=== PATIENT | male | born 1950 | race Hispanic/Latino ===

== ENCOUNTER → 2016-08-15 | Outpatient (CLI) | payer MEDICARE | LOC: GMA 14:47 | PROVIDERS: ATTEND Nurse Practitioner Family | DX: R10.84 Generalized abdominal pain (principal) ==

== ENCOUNTER → 2016-08-17 | Outpatient (CLI) | payer MEDICARE ==
--- NOTE | 2016-08-18 12:49 | US ---
EXAM DESCRIPTION: US ABDOMEN CLINICAL HISTORY: GENERALIZED ABD PN COMPARISON: None Available. TECHNIQUE: Complete abdominal ultrasound was performed utilizing grayscale imaging of the abdomen was performed. Static images were saved to the patient's medical record. FINDINGS: The liver is normal in appearance. There is no focal hepatic mass. The gallbladder is well seen and unremarkable. There are no gallstones. There is no gallbladder wall thickening. The common bile duct is normal in caliber measuring 2.4 mm. The incompletely imaged (due to overlying bowel gas and soft tissues) pancreas and the spleen are unremarkable. The kidneys are normal in size, shape, and echotexture. The IVC and abdominal aorta are unremarkable except for mild atherosclerotic disease. Negative for aneurysm. IMPRESSION: Today's complete abdominal ultrasound demonstrates only atherosclerotic irregularity of the non aneurysmal abdominal aorta. No findings to account for patient's abdominal pain. Electronically signed by: Mat Gray MD 08/18/2016 12:47
== END ==
LOC: US 09:19
PROVIDERS: ATTEND Nurse Practitioner Family
DX: R10.84 Generalized abdominal pain (principal); I70.0 Atherosclerosis of aorta

== ENCOUNTER → 2019-02-10 | Outpatient (CLI) | payer MEDICARE ==
--- NOTE | 2019-02-10 13:37 | CT ---
EXAM DESCRIPTION: Soft Tissue Neck w/Contrast: Computed Tomography CLINICAL HISTORY: 68 years Male, LOC ENLARGED LYMPH NODES. Long-term smoker. COMPARISON: Ultrasound of the neck soft tissues on the same visit. TECHNIQUE: Spiral, axial 2.5 x 2.5 mm scans through the neck soft tissues after infusion of IV contrast. Sagittal and coronal 2.0 millimeter reconstructions. No adverse reactions. Total Exam DLP: 273.86 mGy-cm. This exam was performed according to our departmental CT dose-optimization program which includes automated exposure control, adjustment of the mA and/or kV according to patient size and/or use of iterative reconstruction technique; to reduce radiation dose to as low as reasonably achievable (ALARA). FINDINGS: An inhomogeneously enhancing mass is posterior to the hyoid bone effacing the anterior hypopharynx more left than right, in the left epiglottis and aryepiglottic fold more than right extending inferiorly and circumferentially through the glottis bilaterally. Also enlarging the bilateral false cords, right more than left, terminating at the level of the true cords, which appear symmetric and cricoid cartilage. The anterior aspect of the superior mass measures 3.1 x 1.7 cm in the transverse plane at the level of the hyoid bone. At the false cord level just above the thyroid cartilage, there is more mass affect and abnormal enhancement on the right lateral and posterior aspect of the airway. No destruction in the hyoid bone or thyroid cartilage Two enlarged partially enhancing necrotic lymph nodes in the right carotid space measuring 1.6 x 1.2 cm and 2.2 x 1.0 cm. Partially enhancing necrotic lymph node or mass left side and lateral to the jugular vein medial to the left SCM muscle with mass effect on the muscle at the level of the upper thyroid cartilage and upper glottis. Measuring 2.8 x 1.2 x 2.4 cm, with mass effect on the left IJ vein.. Irregularly enhancing carotid space node between the left internal jugular in the superior mastoid biliary of the left SCM muscle, measuring 1.3 x 1.1 x 0.6 cm. Bilateral parotid glands, and nasopharynx, oropharynx, and tongue base appear symmetric. Included paranasal sinuses and mastoid air cells are unremarkable. Heterogeneous enhancement of the thyroid gland. Small dilated airspaces in the included lungs with posterior apical scarring and bilateral apical pleural thickening. 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 IMPRESSION: 1. Invasive abnormally enhancing tissue extending from the anterior hypo-pharyngeal airway, posterior to the hyoid bone and extending medially along the right lateral aspect and posteriorly through the false cords terminating at the true cords above the cricoid cartilage. Enlarged bilateral necrotic lymph nodes. 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 Less likely to represent a metastasis or inflammatory lesion. ENT consult is recommended. 2. Spondylosis cervical spine. Emphysematous changes in the bilateral upper lung baca. Electronically signed by: Ritesh Yen MD 02/10/2019 1:35 PM CDT
--- NOTE | 2019-02-10 13:54 | US ---
EXAM DESCRIPTION: Soft Tissue,Head/Neck: ULTRASOUND. CLINICAL HISTORY: 68 years Male LOCALIZED ENLARGED LYMPH NODES. Hypopharyngeal mass. COMPARISON: CT scanning of the neck soft tissues with IV contrast on this visit. TECHNIQUE: Transcutaneous scanning: Gonsales-scale and Doppler modes. FINDINGS: On the right side of the neck soft tissue masses are palpable. One mass in the right carotid space has circumscribed margins and central echogenicity and vascularity measuring 2.2 x 1.0 x 0.6 cm. A second mass appears more complex in the right carotid space and minimally vascular, measuring 2.1 x 1.4 x 1.0 cm. On the right side of the neck, a hypoechoic mass is partially vascular and is abutting the airway, measuring 4.0 x 2.9 x 3.4 cm. On the left side of the neck, a hypoechoic mass is abutting the left internal jugular vein with mass effect on the medial left SCM muscle and minimal peripheral vascularity. Dimensions are 2.7 x 1.9 x 1.2 cm. IMPRESSION: Bilateral enlarged lymph nodes,, with one of the enlarged lymph nodes on the right appearing complex and possibly necrotic. Possible 4 cm partially vascular mass abutting the right airway. These findings are consistent with findings of hypopharyngeal mass and enlarged lymph nodes on the CT scan today. Electronically signed by: Ritesh Yen MD 02/10/2019 1:52 PM CDT
== END ==
LOC: US 11:06
PROVIDERS: ATTEND Nurse Practitioner Family
DX: R59.0 Localized enlarged lymph nodes (principal); M47.892 Other spondylosis, cervical region; J43.9 Emphysema, unspecified

== ENCOUNTER → 2020-04-05 | Outpatient (CLI) | payer MEDICARE | LOC: HHH 15:20 | PROVIDERS: ATTEND Internal Medicine Medical Oncology | DX: R39.15 Urgency of urination (principal) ==

== ENCOUNTER → 2020-04-07 | Outpatient (CLI) | payer MEDICARE | LOC: HHH 09:20 | PROVIDERS: ATTEND Nurse Practitioner Family | DX: R33.8 Other retention of urine (principal); R39.15 Urgency of urination ==

== ENCOUNTER → 2020-04-20 | Outpatient (CLI) | payer MEDICARE | LOC: YCFC.O 12:11 | PROVIDERS: ATTEND Nurse Practitioner Family | DX: Z03.818 Encounter for observation for suspected exposure to other biological agents ruled out (principal); Z11.59 Encounter for screening for other viral diseases ==

== ENCOUNTER → 2020-04-28 | Outpatient (CLI) | payer MEDICARE | LOC: HHH 10:31 | PROVIDERS: ATTEND Internal Medicine Medical Oncology | DX: C32.1 Malignant neoplasm of supraglottis (principal); D50.8 Other iron deficiency anemias ==

== ENCOUNTER → 2020-05-05 | Outpatient (CLI) | payer MEDICARE | LOC: HHH 11:14 | PROVIDERS: ATTEND Internal Medicine Medical Oncology | DX: C32.1 Malignant neoplasm of supraglottis (principal); D50.8 Other iron deficiency anemias ==

== ENCOUNTER 2020-06-22 10:08 | Inpatient (IN) | payer MEDICARE ==
--- NOTE | 2020-06-22 10:44 | ED.PDOC ---
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 Pt. is frail and ill appearing with feeding tube and history primarily collected from at bedside. Denies fever cough sob recent travel or contact with covid19 denies fever chills nausea vomiting diarrhea chest pain sob diaphoresis no change in diet rest bowel or bladder. Denies drinking or smoking has PMD in [facility] no other c/o today. PPE worn-N95 surgical mask with attached face shield over N95 gloves and face shield over that Allergies/Adverse Reactions: Allergies NO KNOWN ALLERGY Allergy (Verified 06/22/20 10:51) Home Medications: Ambulatory Orders Tylenol/Codeine Elixir 120/12 5 ml PO PRN 06/22/20 Review of Systems - Review of Systems Constitutional: States: see HPI EENTM: States: see HPI Respiratory: States: see HPI Cardiology: States: see HPI Gastrointestinal/Abdominal: States: see HPI Genitourinary: States: see HPI Musculoskeletal: States: see HPI Skin: States: see HPI Neurological: States: see HPI Endocrine: States: see HPI All other Systems: Reviewed and Negative Past Medical History (General) - Patient Medical History Hx MRSA: Yes - Leg Wound, 2016 MRSA Source:: Wound Family Medical History - Family History Mother Family History: Unknown Physical Exam - Physical Exam General Appearance: Frail, Ill Appearing Eye Exam: bilateral normal Ears, Nose, Throat: normal ENT inspection Neck: non-tender Respiratory: no respiratory distress Cardiovascular/Chest: regular rate, rhythm Gastrointestinal/Abdominal: non tender, soft, other - feeding tube in place PEG Rectal Exam: deferred Back Exam: normal inspection Extremity: normal range of motion, non-tender Neurologic: no motor/sensory deficits Skin Exam: pallor Progress - Progress Progress: 06/22/20 10:45 A/P-Hypoxia, Fatigue-iv cbc cmp trop ekg cxr cta chest respiratory panel reassess 06/22/20 11:10 EKG-non specific TW changes No STEMI NSR 98bpm 06/22/20 12:23 Laboratory Tests 06/22/20 06/22/20 06/22/20 10:29 10:29 10:29 WBC 7.1 RBC 2.62 L Hgb 7.7 L* Hct 23.2 L MCV 88.2 MCH 29.5 MCHC 33.4 RDW 21.5 H Plt Count 345 MPV 7.9 Absolute Neuts (auto) 6.10 Absolute Lymphs (auto) 0.50 L Absolute Monos (auto) 0.50 Absolute Eos (auto) 0.00 Absolute Basos (auto) 0.00 Neutrophils % 86.1 H Lymphocytes % 6.5 L Monocytes % 7.0 Eosinophils % 0.2 L Basophils % 0.2 PT 10.6 INR 1.07 PTT (SP) 31.8 H Sodium 139 Potassium 4.0 Chloride 97 L Carbon Dioxide 28 Anion Gap 18.0 BUN 38 H Creatinine 1.21 BUN/Creatinine Ratio 31.4 H Random Glucose 124 H Serum Osmolality 288.0 Calcium 8.9 Total Bilirubin 0.4 AST 41 ALT 21 Alkaline Phosphatase 48 Troponin I Serum Total Protein 8.6 H Albumin 3.4 Globulin 5.2 H Albumin/Globulin Ratio 0.7 L 06/22/20 10:29 WBC RBC Hgb Hct MCV MCH MCHC RDW Plt Count MPV Absolute Neuts (auto) Absolute Lymphs (auto) Absolute Monos (auto) Absolute Eos (auto) Absolute Basos (auto) Neutrophils % Lymphocytes % Monocytes % Eosinophils % Basophils % PT INR PTT (SP) Sodium Potassium Chloride Carbon Dioxide Anion Gap BUN Creatinine BUN/Creatinine Ratio Random Glucose Serum Osmolality Calcium Total Bilirubin AST ALT Alkaline Phosphatase Troponin I < 0.02 Serum Total Protein Albumin Globulin Albumin/Globulin Ratio 06/22/20 12:32 EXAM DESCRIPTION: Chest,1 View CLINICAL HISTORY: Hypoxia COMPARISON: 22 January 2020 TECHNIQUE: AP portable chest FINDINGS: Bilateral interstitial lung disease is observed more pronounced on the left. The heart is within range of normal. No pleural fluid is seen. A gastrostomy tube is seen in the left upper quadrant. IMPRESSION: New interstitial infiltrates are observed more pronounced on the left and more pronounced peripherally. This raises the possibility of a viral pneumonia Electronically signed by: Yovani Holm MD 06/22/2020 12:09 PM [employer] EXAM DESCRIPTION: CTA Chest CLINICAL HISTORY: 70 years Male, r/o PE h/o vocal cord cancer COMPARISON: Chest x-ray dated the same date TECHNIQUE: Transaxial images were obtained during administration of intravenous contrast media. Sagittal coronal and lobe oblique reconstruction was performed. No 3-D reconstruction was performed.This exam was performed according to our departmental dose-optimization program, which includes automated exposure control, adjustment of the mA and/or kV according to patient size and/or use of iterative reconstruction technique. FINDINGS: The thyroid is normal in appearance. No pathologic axillary adenopathy is observed. Calcific atherosclerotic changes observed in the thoracic aorta without evidence of aneurysmal dilatation. No hilar or mediastinal adenopathy is seen. A moderate size left pleural effusion is noted. No adrenal masses are detected. Interstitial infiltrates are observed bilaterally. No evidence of a pulmonary embolus is detected. There are more pronounced on the left. No bone abnormality is seen. IMPRESSION: 1. No evidence of a pulmonary emesis seen. 2. A moderate size left pleural effusion is seen. 3. Bilateral interstitial infiltrates are observed pneumonia should be considered. The possibility of interstitial spread of neoplasm could also be entertained and was felt less likely. Electronically signed by: Yovani Holm MD 06/22/2020 12:14 PM [employer] Add Pneumonia and Symptomatic Anemia to diagnosis 06/22/20 13:[address] Tinajero Oncologist, is okay with admission to our hospitalist pt is on single agent chemotherapy spoke to Shilo Arnold who accepts admission Departure - Departure Clinical Impression: Symptomatic anemia, Hypoxia Pneumonia Qualifiers: Pneumonia type: due to unspecified organism Laterality: unspecified laterality Lung location: unspecified part of lung Qualified Code(s): J18.9 - Pneumonia, unspecified organism Failure to thrive Qualifiers: Failure to thrive age range: in adult Qualified Code(s): R62.7 - Adult failure to thrive Disposition: Admit Patient Condition: Fair Departure Forms: ED Discharge - Pt. Copy, Patient Portal Self Enrollment Referrals: Alicia Ferguson NP [Primary Care Provider] - 1-2 Days Home Medications: Ambulatory Orders Tylenol/Codeine Elixir 120/12 5 ml PO PRN 06/22/20 Decision To Admit - Decistion To Admit Decision to Admit Reason: Admit from ER Decision to Admit Date: 06/22/20 Decision to Admit Time: 13:58
--- NOTE | 2020-06-22 12:10 | RAD ---
EXAM DESCRIPTION: Chest,1 View CLINICAL HISTORY: Hypoxia COMPARISON: 22 January 2020 TECHNIQUE: AP portable chest FINDINGS: Bilateral interstitial lung disease is observed more pronounced on the left. The heart is within range of normal. No pleural fluid is seen. A gastrostomy tube is seen in the left upper quadrant. IMPRESSION: New interstitial infiltrates are observed more pronounced on the left and more pronounced peripherally. This raises the possibility of a viral pneumonia Electronically signed by: Yovani Holm MD 06/22/2020 12:09 PM [facility]
--- NOTE | 2020-06-22 12:16 | CT ---
EXAM DESCRIPTION: CTA Chest CLINICAL HISTORY: 70 years Male, r/o PE h/o vocal cord cancer COMPARISON: Chest x-ray dated the same date TECHNIQUE: Transaxial images were obtained during administration of intravenous contrast media. Sagittal coronal and lobe oblique reconstruction was performed. No 3-D reconstruction was performed.This exam was performed according to our departmental dose-optimization program, which includes automated exposure control, adjustment of the mA and/or kV according to patient size and/or use of iterative reconstruction technique. FINDINGS: The thyroid is normal in appearance. No pathologic axillary adenopathy is observed. Calcific atherosclerotic changes observed in the thoracic aorta without evidence of aneurysmal dilatation. No hilar or mediastinal adenopathy is seen. A moderate size left pleural effusion is noted. No adrenal masses are detected. Interstitial infiltrates are observed bilaterally. No evidence of a pulmonary embolus is detected. There are more pronounced on the left. No bone abnormality is seen. IMPRESSION: 1. No evidence of a pulmonary emesis seen. 2. A moderate size left pleural effusion is seen. 3. Bilateral interstitial infiltrates are observed pneumonia should be considered. The possibility of interstitial spread of neoplasm could also be entertained and was felt less likely. Electronically signed by: Yovani Holm MD 06/22/2020 12:14 PM [employer]
[2020-06-22] MEDS ORDERED: cefTRIAXone SODIUM 1 GM in SODIUM CHL 0.9% 50ML MIN-BAG+ 50 ML IVPB ONE (12:34)
[2020-06-22] MEDS ORDERED: AZITHROMYCIN IV 500 MG in SODIUM CHLORIDE 0.9% 250ML 250 ML IVPB ONE (12:34)
[2020-06-22] MEDS ORDERED: DEXAMETHASONE INJ 10 MG/ML VIAL IV ONE (12:34)
--- NOTE | 2020-06-22 17:29 | HP ---
SUPERVISING PHYSICIAN: Rosas Jones MD CHIEF COMPLAINT: Hypoxia. HISTORY OF PRESENT ILLNESS: Mr. Mcgee is a 70-year-old male that has a history of vocal cord cancer. He was brought to the Emergency Room by his . He was sent at the request of the home health nurse as he was showing saturations on room air of 80%. He does have a feeding tube in place and is currently getting chemotherapy. The patient is a very poor historian, therefore, records were obtained from the clinic which are very limited in information. The rest was obtained from Emergency Room records. In the ER, his initial vital signs showed he was mildly tachycardic at 103, saturations 90% on 2 liters nasal cannula with blood pressure 110/66. His laboratory studies showed he was anemic with normocytic/normochromic presentation with hemoglobin 7.7, hematocrit 23.2. Platelet count was normal at 345. He does have a left shift. Coagulation studies showed PT 2.6, PTT 31.8. Chemistry showed creatinine 1.21, troponin less than 0.02. CT of the chest was completed to rule out pulmonary embolism based on his history of cancer, increased shortness of breath and tachycardia and per radiologic interpretation, there is no evidence of pulmonary embolism seen. There was note a moderate sized left pleural effusion and bilateral interstitial infiltrate concerning for pneumonia. Given his history of cancer and current chemotherapy, Dr. Mares was contacted by the ER physician who agreed that the patient was stable enough to be admitted for treatment of pneumonia here at [facility]. He had a nasal swab done that was negative for all bacterial and viral targets including COVID and influenza. He was started on antibiotics with Rocephin and azithromycin. He was admitted for treatment of underlying pneumonia in stable condition at time of admission. PAST MEDICAL HISTORY: 1. Vocal cord cancer under currently treatment by Dr. Mares. Otherwise, past medical history is unremarkable. PAST SURGICAL HISTORY: 1. Metal plate in his left arm which was removed in the 80s. 2. PEG tube placement due to complications from vocal cord cancer. No other surgeries listed. HOME MEDICATIONS: We are awaiting updated list of medications. ALLERGIES: NO KNOWN DRUG ALLERGIES. FAMILY HISTORY: Father at age 75 due to emphysema. Mother at age 81 due to heart attack. He had two brothers with unknown medical history, but there is mention of positive history of hypertension, myocardial infarction. SOCIAL HISTORY: The patient is retired [employer]. He is and lives in [place]. He does have a past history of smoking 1-1/2 packs per day, but quit after diagnosed with cancer in the last 2 or 3 years. He used to drink alcohol on a regular basis, but denies any recent alcohol usage. He does not use any illicit drugs. REVIEW OF SYSTEMS: CONSTITUTIONAL: Denies any fevers, chills. Positive for general malaise and weakness. HEENT: As noted in history of present illness, positive for vocal cord cancer. He can vocalize, but very limited. No reported sore throats, earaches, nasal congestion. RESPIRATORY: Denies coughing, but does have shortness of breath as noted in history of present illness. CARDIOVASCULAR: Denies chest pain, palpitations or syncopal episodes. GASTROINTESTINAL: Denies nausea, vomiting or abdominal pain. He does have PEG tube in place. GENITOURINARY: Denies dysuria, hematuria, polyuria. MUSCULOSKELETAL: Denies any joint swelling, arthralgias, just generalized weakness. SKIN: Denies lesions, rashes, moles or unexplained changes. NEUROLOGIC: Denies seizures, ataxia. He does have generalized weakness, but no motor focal deficits. HEMATOLOGIC: Denies unexplained bleeding, bruising or transfusion reactions. PHYSICAL EXAMINATION: VITAL SIGNS: Initially temperature 98, pulse 103, blood pressure 110/66, respirations 20, saturation 90% on 2 liters nasal cannula. After breathing treatment, improvement to 96% on 3 liters at rest. GENERAL: The patient is very frail in appearance, thin and weak. He is alert. HEENT: Tympanic membranes clear bilaterally. Oropharynx is pink. Mucous membranes are notably dry. NECK: Supple, nontender with full range of motion. RESPIRATORY: Lung sounds are diminished, but no obvious rhonchi, wheezes or rales. CARDIOVASCULAR: Regular rate and rhythm without any appreciable murmurs, gallops, or rubs. ABDOMEN: Soft, nontender. Positive bowel sounds with PEG tube in place in the left upper quadrant. RECTAL: Deferred. BACK: No CVA or vertebral tenderness. EXTREMITIES: There is no cyanosis, clubbing or edema. NEUROLOGIC: Cranial nerves II-XII are grossly intact. The patient is alert and oriented times three. SKIN: Very pale, but dry. LABORATORY: Hemoglobin 7.7, hematocrit 23.2, platelet count 345,000. White count normal at 7,100, but he does have a left shift. Coagulation studies showed normal PT, PTT slightly elevated 31.8. Chemistries showed normal electrolytes. BUN 38, creatinine 1.21. Liver functions were within normal limits. He had three sets of troponins which were all less than 0.02. Urinalysis showed small amount of leukocyte esterase. Microscopic revealed 0 to 1 RBCs, 5 to 10 WBCs with 1 to 3 epithelials and 1+ bacteria. MICROBIOLOGY: Urine culture pending. Respiratory panel was negative for all bacterial and viral targets as tested including COVID and influenza. RADIOLOGY: CT of chest per radiologic interpretation showed no evidence of pulmonary embolism. There is moderate sized pleural effusion seen on the left with bilateral interstitial infiltrates with pneumonia to be considered. ASSESSMENT: 1. Community acquired pneumonia. 2. Active treatment for vocal cord cancer with chemotherapy. 3. Anemia secondary to underlying chronic illness and chemotherapy, but hemodynamically stable. 4. Urinary tract infection with cultures pending. 5. Mild dehydration, likely due to poor oral intake with PEG tube in place. PLAN: Mr. Mcgee is going to be admitted to the hospital for treatment of underlying pneumonia, urinary tract infection and dehydration. We will start him on treatment with Rocephin and azithromycin. He will be Lovenox. He will be on tube feedings once his feeding tube regimen is in place from home. We will follow his labs. I will put him on some Protonix and Align. I anticipate his length of stay to be at least 2 to 3 days. Until the patient can transition to outpatient management, we will continue to monitor and treat as needed. #[id number] [facility]
[2020-06-22] MEDS ORDERED: ALBUTEROL SULFATE 2.5 MG/3 ML VIAL NEB PRN (18:19)
[2020-06-22] MEDS ORDERED: SODIUM CHLORIDE 0.9% (FLUSH) 10 ML SYG IV PRN (18:19)
[2020-06-22] MEDS ORDERED: ONDANSETRON INJ 4 MG/2 ML VIAL IV PRN (18:19)
[2020-06-22] MEDS ORDERED: IV SET AND CAP CHANGE INJ INJ SCH (18:30)
[2020-06-22] MEDS: IPRATROPIUM/ALBUTEROL 3 ML VIAL INH SCH (19:44)
[2020-06-22] MEDS: ENOXAPARIN SODIUM 40 MG/0.4 ML SYG SUBCU SCH (20:10)
[2020-06-23] MEDS: PANTOPRAZOLE SODIUM IV 40 MG VIAL IV SCH (06:53)
[2020-06-23] MEDS ORDERED: cefTRIAXone SODIUM 1 GM VIAL ONE (07:06)
[2020-06-23] MEDS ORDERED: SODIUM CHL 0.9% 50ML MIN-BAG+ 50 ML IVPB ONE (07:06)
[2020-06-23] MEDS ORDERED: SODIUM CHLORIDE 0.9% 250ML 250 ML ONE (07:07)
[2020-06-23] MEDS ORDERED: AZITHROMYCIN IV 500 MG VIAL IVPB ONE (07:07)
[2020-06-23] MEDS: cefTRIAXone SODIUM 1 GM in SODIUM CHL 0.9% 50ML MIN-BAG+ 50 ML IVPB SCH (08:00)
[2020-06-23] MEDS: IPRATROPIUM/ALBUTEROL 3 ML VIAL INH SCH ×4 (09:02→20:06)
[2020-06-23] MEDS: AZITHROMYCIN IV 500 MG in SODIUM CHLORIDE 0.9% 250ML 250 ML IVPB SCH (10:48)
[2020-06-23] MEDS ORDERED: IPRATROPIUM/ALBUTEROL 3 ML VIAL NEB ONE (12:37)
[2020-06-23] MEDS ORDERED: methylPREDNISolone SODIUM SUC 40 MG/ML VIAL IV ONE (16:02)
[2020-06-23] MEDS ORDERED: ACETAMINOPHEN 325 MG TAB PO ONE (16:02)
[2020-06-23] MEDS ORDERED: FUROSEMIDE INJ 20 MG/2 ML VIAL IV ONE (16:02)
[2020-06-23] MEDS ORDERED: diphenhydrAMINE HCL 50 MG/ML VIAL IV ONE (16:02)
[2020-06-23] MEDS ORDERED: SODIUM CHLORIDE 0.9% 500ML 500 ML IVS SCH (16:30)
--- NOTE | 2020-06-23 17:57 | PN ---
SUPERVISING PHYSICIAN: Jeff Jones MD DATE: 06/23/20 SUBJECTIVE: The patient has been coughing up a little bright red blood, notes his throat has been sore but he has not had any airway compromise. We are not transfusing him yet but we are watching his hemoglobin and hematocrit and I anticipate we probably have to transfuse later today. He is still quite weak but has not had any chest pain and no nausea or vomiting. He seems to be tolerating his feedings. OBJECTIVE: VITAL SIGNS: Temperature 98.3, pulse 90, blood pressure 107/52, respirations 16, oxygen saturation 94% on 3 liter nasal cannula at rest. CHEST: Sounds just a little diminished bilaterally but otherwise fairly clear. HEART: Regular rate and rhythm. ABDOMEN: Soft, non-tender with PEG tube in place. No rebound tenderness. EXTREMITIES: Without edema. NEUROLOGIC: Alert and oriented x 3. LABORATORY: Hemoglobin 7.3, hematocrit 21.7, platelet count 320,000. Differential does show to be a left shift. Chemistries show normal electrolytes, BUN 34, creatinine 0.93, calcium 8.6. MICROBIOLOGY: Urine culture shows no growth at 24 hours. RADIOLOGY: No additional radiographic studies. ASSESSMENT: 1. Community acquired pneumonia. 2. Active treatment for vocal cord cancer with chemotherapy. 3. Anemia secondary to underlying chronic illness and chemotherapy, but hemodynamically stable. 4. Hemoptysis probably secondary to vocal cord cancer without any airway compromise. 5. Urinary tract infection with cultures pending. 6. Mild dehydration, likely due to poor oral intake with PEG tube in place. PLAN: Will follow the patient's H&H today and if it shows dropping, certainly we will go ahead and transfuse at least one unit. In regard to his hemoptysis, we will watch that closely but I think that is probably due to his underlying vocal cord cancer but he is not showing any respiratory distress at this point. Hopefully, we will be able to transition him to outpatient management in the next 24-48 hours but he does remain weak. Will go ahead and get a physical therapy consult as well as a nutritional consultation. I am not sure if he is actually getting an adequate amount of protein based off his current tube feeding regimen. [id number] MTDD
[2020-06-23] MEDS: ENOXAPARIN SODIUM 40 MG/0.4 ML SYG SUBCU SCH (20:36)
[2020-06-24] MEDS: PANTOPRAZOLE SODIUM IV 40 MG VIAL IV SCH (05:44)
[2020-06-24] MEDS: cefTRIAXone SODIUM 1 GM in SODIUM CHL 0.9% 50ML MIN-BAG+ 50 ML IVPB SCH (08:13)
[2020-06-24] MEDS: IPRATROPIUM/ALBUTEROL 3 ML VIAL INH SCH ×4 (08:30→20:28)
[2020-06-24] MEDS: AZITHROMYCIN IV 500 MG in SODIUM CHLORIDE 0.9% 250ML 250 ML IVPB SCH (12:22)
[2020-06-24] MEDS ORDERED: IPRATROPIUM/ALBUTEROL 3 ML VIAL NEB ONE (17:17)
--- NOTE | 2020-06-24 18:29 | PN ---
SUPERVISING PHYSICIAN: Jeff Jones MD DATE: 06/24/20 SUBJECTIVE: The patient got a unit of blood last night. His H&H did increase significantly and he feels a little better this morning. He did get a nutritional consult and he is no longer having any hemoptysis since late yesterday evening. He has no complaints of abdominal pain. He has actually been able to tolerate some tube feedings better than he was prior to admission. OBJECTIVE: VITAL SIGNS: Temperature 98, pulse 70, blood pressure 115/75, respirations 16, oxygen saturation 94% on 4 liters nasal cannula at rest. CHEST: Sounds just a little diminished bilaterally but otherwise fairly clear. HEART: Regular rate and rhythm. ABDOMEN: Soft, non-tender with PEG tube in place. No rebound tenderness. EXTREMITIES: Without edema. NEUROLOGIC: Alert and oriented x3. LABORATORY: Hemoglobin dropped last night to 68 and hematocrit 20.0. He got a unit of packed red blood cells overnight. This morning, repeat H&H was 10.2 and 30.6. Chemistries show normal electrolytes, creatinine 0.93, calcium 8.6. MICROBIOLOGY: Urine culture shows no growth at 48 hours. ASSESSMENT: 1. Community acquired pneumonia. 2. 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 3. Normocytic/normochromic anemia secondary to chronic illness and #2, receiving a unit of packed red blood cells. 4. Hemoptysis probably secondary to vocal cord cancer without any noted airway compromise, resolving. 5. Possible urinary tract infection with current cultures showing no growth. 6. Mild dehydration, resolved with further feedings and IV fluids. PLAN: We will continue current posterior. I would anticipate if he continues to show improvement in regards to the pneumonia, we will repeat an x-ray in the morning and he will probably be able to discharge home. We will recheck his H&H in the morning as well. At this point, I will hold off on any additional transfusions as he is up 10, which is adequate for him. He noted he feels much better. We did get a physical therapy evaluation and we will continue with physical therapy. At this point, he seems to be doing okay physically and recommendations are that he may need to have some physical therapy at home with home health. Otherwise, if he is doing well in the morning, I anticipate we will be able to discharge home and continue with outpatient management. #[id number] [facility]
[2020-06-24] MEDS: ENOXAPARIN SODIUM 40 MG/0.4 ML SYG SUBCU SCH (21:30)
[2020-06-25] MEDS ORDERED: SODIUM CHLORIDE 0.65% NASAL SPRAY 45 ML BTTL BNAS PRN (01:35)
[2020-06-25] MEDS ORDERED: SODIUM CHLORIDE 0.65% NASAL SPRAY 45 ML BTTL ONE (01:37)
[2020-06-25] MEDS: PANTOPRAZOLE SODIUM IV 40 MG VIAL IV SCH (05:56)
--- NOTE | 2020-06-25 07:38 | RAD ---
EXAM DESCRIPTION: X-ray single view chest. CLINICAL HISTORY: 70 years Male, PNA COMPARISON: 06/23/2020 and 06/22/2020 TECHNIQUE: Single portable x-ray view of the chest performed on 06/25/2020 at 6:47 AM FINDINGS: The lungs are well expanded. There is ongoing mild diffuse hazy opacification throughout the lungs with slightly improved aeration of the left lung base. There is no evidence of a pneumothorax. The cardiac silhouette is normal in size and configuration. The mediastinal contours are normal. No acute osseous abnormality is identified. No focal soft tissue abnormalities are seen. Lines and tubes: There appears to be a percutaneous gastrostomy catheter in the left upper quadrant. There are multiple overlying security monitor leads. IMPRESSION: Ongoing mild diffuse hazy opacification throughout the lungs with slightly improved aeration of the left lung base. Findings may be due to edema, multifocal pneumonia and/or fibrosis. Electronically signed by: Bruna Dee DO 06/25/2020 7:37 AM [facility]
[2020-06-25] MEDS: cefTRIAXone SODIUM 1 GM in SODIUM CHL 0.9% 50ML MIN-BAG+ 50 ML IVPB SCH (08:28)
[2020-06-25] MEDS: IPRATROPIUM/ALBUTEROL 3 ML VIAL INH SCH (09:00)
[2020-06-25 09:40] VITALS: O2SAT 95
[2020-06-25] MEDS: AZITHROMYCIN IV 500 MG in SODIUM CHLORIDE 0.9% 250ML 250 ML IVPB SCH (11:53)
[2020-06-25 13:08] VITALS: BP 97/61; TEMP 98.9
--- NOTE | 2020-06-27 08:38 | DS ---
SUPERVISING PHYSICIAN: Rosas Jones MD ADMISSION DIAGNOSIS: 1. Community acquired pneumonia. 2. Active treatment for vocal cord cancer with chemotherapy. 3. Anemia secondary to underlying chronic illness and chemotherapy, but hemodynamically stable. 4. Urinary tract infection with cultures pending. 5. Mild dehydration, likely due to poor oral intake with PEG tube in place. DISCHARGE DIAGNOSIS: 1. Community acquired pneumonia. 2. 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 3. Normocytic/normochromic anemia secondary to chronic illness and #2, receiving a unit of packed red blood cells. 4. Hemoptysis probably secondary to vocal cord cancer without any noted airway compromise, resolving. 5. Possible urinary tract infection with current cultures showing no growth. 6. Mild dehydration, resolved with further feedings and IV fluids. REASON FOR HOSPITALIZATION: Mr. Mcgee is a 70-year-old male that has a history of vocal cord cancer. He was brought to the Emergency Room by his . He was sent at the request of the home health nurse as he was showing saturations on room air of 80%. He does have a feeding tube in place and is currently getting chemotherapy. The patient is a very poor historian, therefore, records were obtained from the clinic which are very limited in information. The rest was obtained from Emergency Room records. In the ER, his initial vital signs showed he was mildly tachycardic at 103, saturations 90% on 2 liters nasal cannula with blood pressure 110/66. His laboratory studies showed he was anemic with normocytic/normochromic presentation with hemoglobin 7.7, hematocrit 23.2. Platelet count was normal at 345. He does have a left shift. Coagulation studies showed PT 2.6, PTT 31.8. Chemistry showed creatinine 1.21, troponin less than 0.02. CT of the chest was completed to rule out pulmonary embolism based on his history of cancer, increased shortness of breath and tachycardia and per radiologic interpretation, there is no evidence of pulmonary embolism seen. There was note a moderate sized left pleural effusion and bilateral interstitial infiltrate concerning for pneumonia. Given his history of cancer and current chemotherapy, Dr. Mares was contacted by the ER physician who agreed that the patient was stable enough to be admitted for treatment of pneumonia here at [facility]. He had a nasal swab done that was negative for all bacterial and viral targets including COVID and influenza. He was started on antibiotics with Rocephin and azithromycin. He was admitted for treatment of underlying pneumonia in stable condition at time of admission. LABORATORY: Initial hemoglobin 7.7, hematocrit 23.2, white count 7,100 with a left shift. Platelet count normal at 345. His lowest hemoglobin was 6.8 and hematocrit 20.0. He received 1 unit of packed red blood cells and prior to discharge, he was at hemoglobin 9.5, hematocrit 28.0. Coagulation studies showed PTT 31.8 with a normal PT. Chemistries on discharge showed normal electrolytes, normal calcium, normal creatinine at 0.93. He had 3 troponins that were all less than 0.02. Urinalysis showed a small amount of leukocyte esterase with 5 to 10 WBCs, 0 to 1 RBCs, 1 to 3 epithelial and 1+ bacteria. MICROBIOLOGY: Final urine culture results showed no growth. Nasal swab was negative for COVID and all other bacterial and viral agents including influenza. RADIOLOGY: CT of the chest in the ER prior to admission showed no evidence of pulmonary embolism. There was moderate sized left pleural effusion seen and bilateral interstitial infiltrates observed, pneumonia should be considered. Please see that report for details. Final chest x-ray on discharge per radiologic interpretation showed ongoing mild diffuse hazy opacities throughout the lungs with slightly improved aeration in left lung base. HOSPITAL COURSE: Mr. Mcgee was admitted for pneumonia and symptomatic anemia. He was transfused with 1 unit of packed red blood cells. He had no evidence of any acute bleed. He did well with 1 unit. He worked with physical therapy and was doing well. He did show some slight desaturations with ambulation, but was maintaining good O2 saturations on room air. On day of discharge, it was felt he was clinically stable enough to continue with outpatient management. Arrangements were made for oxygen at home. Saturations here were showing 95% at rest on 3 liters nasal cannula. Temperature 98.5, pulse 111, blood pressure 97/61, respirations 22. PLAN: Mr. Mcgee was discharged on 06/25/[address] Mares. He was to call his office on Saturday. He was continued on antibiotics for underlying pneumonia with cefdinir. He had arrangements for oxygen at home. He has home health with [facility]. He was to resume his usual tube feeding diet and increase fluids as possible to prevent dehydration. He was given instructions to return to the Emergency Room for any concerning symptoms. All other medications prior to hospitalization were continued. MEDICATIONS PRESCRIBED AT DISCHARGE: 1. Cefdinir 250 mg per 5 mL, 6 mL to take 2 twice daily for 7 days. 2. Albuterol inhaler. CONDITION ON DISCHARGE: Stable and improved. DISPOSITION: The patient was discharged home. #[id number] [facility]
== END 2020-06-25 13:45 | disposition home health service (06) | DRG 194 ==
LOC: ER 10:08 → MS 17:27 → OBSVTOIN 17:27
PROVIDERS: ADMIT Nurse Practitioner Family; ATTEND Nurse Practitioner Family
PROC: B32T1ZZ Computerized Tomography (CT Scan) of Left Pulmonary Artery using Low Osmolar Contrast (ICD-10-PCS; principal; 2020-06-22)
PROC: B32S1ZZ Computerized Tomography (CT Scan) of Right Pulmonary Artery using Low Osmolar Contrast (ICD-10-PCS; 2020-06-22)
PROC: 30233N1 Transfusion of Nonautologous Red Blood Cells into Peripheral Vein, Percutaneous Approach (ICD-10-PCS; 2020-06-23)
DX: J18.9 Pneumonia, unspecified organism (principal); N39.0 Urinary tract infection, site not specified; R04.2 Hemoptysis; C32.0 Malignant neoplasm of glottis; D63.8 Anemia in other chronic diseases classified elsewhere; E86.0 Dehydration; Z93.1 Gastrostomy status; D64.81 Anemia due to antineoplastic chemotherapy; T45.1X5A Adverse effect of antineoplastic and immunosuppressive drugs, initial encounter; Y92.9 Unspecified place or not applicable; Z87.891 Personal history of nicotine dependence

== ENCOUNTER → 2020-08-13 | Outpatient (CLI) | payer MEDICARE ==
--- NOTE | 2020-08-15 10:31 | RAD ---
EXAM: Chest,2 Views CLINICAL HISTORY: hx of pneumonia COMPARISON STUDY: Chest x-ray from June 25, 2020. Chest CT from June 22, 2020. TECHNICAL: PA and lateral chest x-ray. FINDINGS: Pulmonary parenchymal opacity within the inferior lateral aspect of the right upper lobe is more prominent than the previous examination. A right perihilar pulmonary density is new. There is better aeration of the left lung compared to the previous examination. The lungs are hyperexpanded and there is a background of interstitial prominence. Small bilateral pleural effusions are present. The heart is enlarged. Vascular calcifications are present. IMPRESSION: 1. Increased or worsened right upper lobe pulmonary opacity felt to be infiltrate. 2. New right infrahilar infiltrate/pneumonia. 3. Hyperexpansion and background of chronic disease suggests emphysema. Electronically signed by: Fercho Baptiste MD 08/15/2020 10:30 AM [facility]
== END ==
LOC: RAD 14:21
PROVIDERS: ATTEND Internal Medicine Medical Oncology
DX: C32.1 Malignant neoplasm of supraglottis (principal); R91.8 Other nonspecific abnormal finding of lung field; J18.9 Pneumonia, unspecified organism

== ENCOUNTER → 2020-09-22 | Outpatient (CLI) | payer MEDICARE | LOC: HHH 14:11 | PROVIDERS: ATTEND Nurse Practitioner Family | DX: G83.21 Monoplegia of upper limb affecting right dominant side (principal); R60.0 Localized edema ==